=== PATIENT | male | born 1980 | race Two or more races ===

== ENCOUNTER 2018-04-02 22:12 | Inpatient (IN) | payer MEDICAID, OTHER ==
[~2018-04-02] VITALS: Ht 182.9 cm; Wt 74.4 kg
[2018-04-02] MEDS: LACTATED RINGER'S 1,000 ML IV SCH (01:00)
[~2018-04-02 22:12] MED LIST: SERAQUIL
[2018-04-03 00:28] LABS: Basophils # (auto) 0.1 uL; Basophils % (auto) 0.6 % (0.0-2.0); Eosinophils # (auto) 0.4 uL; Hemoglobin 16.5 g/dL (13.5-17.5); Lymphocytes # (auto) 4.6 uL; Mean Corpuscular Hgb Conc. 33.6 g/dL (32.0-36.0); Mean Corpuscular Volume 92.3 fL (80.0-100.0); Monocytes # (auto) 0.9 uL; Monocytes % (auto) 7.3 % (0.0-12.0); Neutrophils # (auto) 5.9 uL; Neutrophils % (auto) 50.1 % (37.0-80.0); Nucleated Red Blood Cells % 0.1 %; Platelet Count (auto) 235 10^3/uL (140-450); Red Blood Cells 5.31 10^6/uL (4.5-5.90); Red Cell Distribution Width 13.4 % (11.8-14.3); White Blood Cell 11.9 10^3/uL (4.4-10.8)
[2018-04-03 00:33] LABS: Urine WBC None Seen /hpf (0 - 3)
[2018-04-03 00:42] VITALS: BP 105/67
--- NOTE | 2018-04-03 00:42 | NUR ---
MS admit from ER MARCELLA MAR admitted to tele/MS after NO SBAR received. Patient oriented to DAMASO MEADOWS, RN primary RN, unit, room, bed, and unit policies regarding patient care and visiting hours. Family member at bedside. Patient weighed by bedscale and encouraged to call if they need something. All questions and concerns addressed, patient verbalized understanding. Note:
[2018-04-03 00:43] LABS: INR 0.94 (0.9-1.15); Partial Thromboplastin Time 32.5 sec (23.78-33.04); Prothrombin Time 10.1 sec (9.27-12.13)
[2018-04-03 00:46] LABS: Albumin 4.1 g/dL (3.4-5.0); BUN/Creatinine Ratio 9.6; Calcium 8.5 mg/dL (8.5-10.1); Potassium 4.1 mmol/L (3.5-5.1)
[2018-04-03 00:48] LABS: Bilirubin, Total 0.5 mg/dL (0.2-1.0); Total Protein 7.2 g/dL (6.4-8.2)
[2018-04-03 00:55] LABS: Urine Bacteria FEW /hpf (None Seen); Urine Blood Negative /uL (Negative); Urine Mucus FEW (None Seen); Urine Specific Gravity 1.002 (1.001-1.035)
--- NOTE | 2018-04-03 02:02 | NUR ---
PAGED HOSPITALIST Pt complaining of pain no pain meds available. Pain 8/10 on left side, Will await call back and continue to monitor pt.
--- NOTE | 2018-04-03 02:06 | NUR ---
HOSPITALIST CALL BACK TELEPHONE ORDER READ BACK Morphine 4 mg IV Once Zofran 4mg IV Once will carry out md order and will continue to monitor pt.
[2018-04-03] MEDS ORDERED: ONDANSETRON HCL 4 MG/2 ML VIAL IV ONE (02:15)
[2018-04-03] MEDS ORDERED: MORPHINE SULFATE 10 MG/ML INJ 1ML SDV IV ONE (02:15)
--- NOTE | 2018-04-03 02:30 | NUR ---
PT ROUNDS Informed pt that he does have one time order for pain med, pt stated that he would not like pain med at this moment, pain level is tolerable. will continue to monitor pt.
[2018-04-03] MEDS ORDERED: OLAN20TA13 PO (03:23)
[2018-04-03 05:00] VITALS: BP 106/62
[2018-04-03] MEDS: LACTATED RINGER'S 1,000 ML IV SCH ×2 (06:25→07:28)
--- NOTE | 2018-04-03 06:48 | NUR ---
CLOSING NOTE PT resting no s/sx's of distress or sob noted, family member at bedside.
[2018-04-03] MEDS ORDERED: INFLUENZA QUAD 2018-2019 0.5 ML SYRG IM ONE (07:00)
--- NOTE | 2018-04-03 07:30 | NUR ---
OPENING NOTE The patient is received alert and oriented times four with no SOB or s/s of distress at this time. The patient is resting in bed in the lowest position with call light within reach, will continue to monitor and POC.
--- NOTE | 2018-04-03 07:45 | NUR ---
PRE-OP CALLED Pre-Op is called for the patient's pending procedure. Pre-Op states that the patient is on the surgical list and that the patient needs to be in Pre-Op around 0830.
[2018-04-03 08:30] VITALS: BP 103/65
[2018-04-03] MEDS ORDERED: fentaNYL CITRATE 100 MCG/2 ML VL ONE (08:36)
[2018-04-03] MEDS ORDERED: MIDAZOLAM HCL 1MG/1ML-2 ML VIAL ONE (08:36)
[2018-04-03] MEDS ORDERED: SODIUM CHLORIDE LOCK 10 ML ONE (08:37)
[2018-04-03] MEDS ORDERED: ONDANSETRON HCL 4 MG/2 ML VIAL ONE (08:37)
[2018-04-03] MEDS ORDERED: PROPOFOL 10 MG/ML 20 ML IV ONE (08:37)
--- NOTE | 2018-04-03 08:40 | NUR ---
PATIENT TRANSPORTED The patient is transported to Pre-Op via bed with no s/s of distress noted during transfer.
[2018-04-03] MEDS ORDERED: ceFAZolin 1GM/50ML 50 ML IV ONE (09:31)
[2018-04-03] MEDS ORDERED: METOCLOPRAMIDE HCL 5MG/ml INJ 2ml VIAL IV ONE (09:45)
[2018-04-03] MEDS ORDERED: KETOROLAC TROMETH 30 MG/ML 1ML VIAL IV ONE (09:45)
[2018-04-03] MEDS ORDERED: HYDROmorphone HCL 2 MG/ML VL IV PRN (09:45)
[2018-04-03] MEDS ORDERED: LIDOCAINE 1% HCL (LOCAL ANESTH.) INJ 20ML MDV ONE (09:46)
[2018-04-03] MEDS ORDERED: QUEtiapine FUMARATE 25 MG TAB PO SCH (10:00)
[2018-04-03] MEDS ORDERED: BUPIVACAINE W/ EPINEPH 0.25% INJ 50ML MDV ONE (10:11)
[2018-04-03] MEDS ORDERED: ACETAMINOPHEN 325 MG TAB PO PRN (10:15)
[2018-04-03] MEDS ORDERED: HYDROcodone-ACET 10/325MG TAB PO PRN (10:15)
[2018-04-03] MEDS ORDERED: LACTATED RINGER'S 1,000 ML IV SCH (10:15)
[2018-04-03] MEDS ORDERED: ONDANSETRON HCL 4 MG/2 ML VIAL IV PRN (10:15)
[2018-04-03] MEDS ORDERED: DOXAPRAM HCL 20 MG/ML 20ML VIAL INJ IV ONE (10:28)
[2018-04-03] MEDS ORDERED: LIDOCAINE HCL 2% TOP JELLY 5ML TOP ONE (10:36)
[2018-04-03] MEDS ORDERED: PIPERACILLIN-TAZOB 3.375GM 100 ML IV SCH (12:00)
--- NOTE | 2018-04-03 12:15 | NUR ---
PATIENT RECEIVED FROM PACU The patient is received from PACU A/O times four with no SOB or s/s of distress at this time. The patient is resting comfortably in bed in the lowest position with call light within reach. The patient had a discharge order placed by Dr. Jarvis and Dr. Mendoza is called to assess the patient's discharge status, will continue to monitor and POC.
--- NOTE | 2018-04-03 12:30 | NUR ---
HOSPITALIST CALLS Dr. Mendoza calls and is updated on the patient's status. Dr. Mendoza states that if the patient is cleared by Dr. Jarvis then the patient can discharged today.
[2018-04-03 13:21] VITALS: BP 117/77
--- NOTE | 2018-04-03 14:30 | NUR ---
PRESCRIPTIONS Prescriptions called in to [facility], will continue to monitor and POC.
--- NOTE | 2018-04-03 16:30 | NUR ---
Discharge instructions given as ordered. Encourage to follow up with PMD as instructed. All questions and concerns addressed. Patient verbalized understanding. IV removed with catheter intact, pressure dressing applied. Patient taken to vehicle via wheelchair with all personal belongings, accompanied by staff and family member. No distress noted at time of departure.
[2018-04-04] MEDS ORDERED: OLANZapine 5 MG TAB PO SCH (10:00)
== END 2018-04-03 16:30 | disposition home or self-care (01) | DRG 228 ==
LOC: ER 22:49 → OVERFLOW 23:50 → EAST 04-03 00:42
PROVIDERS: ADMIT Surgery; ATTEND Internal Medicine
PROC: 0YQ60ZZ Repair Left Inguinal Region, Open Approach (ICD-10-PCS; principal; 2018-04-03 09:51)
DX: K40.30 Unilateral inguinal hernia, with obstruction, without gangrene, not specified as recurrent (principal); J18.9 Pneumonia, unspecified organism; F20.9 Schizophrenia, unspecified; J44.0 Chronic obstructive pulmonary disease with (acute) lower respiratory infection; F12.90 Cannabis use, unspecified, uncomplicated; F17.210 Nicotine dependence, cigarettes, uncomplicated; Z88.8 Allergy status to other drugs, medicaments and biological substances
CPT/HCPCS: 36415; 71045; 80053; 81001; 85025; 85610; 85730; 86850; 86900; 86901; 93005; A6257; G0378; J0690; J2001; J2250; J2405; J2704

== ENCOUNTER → 2020-05-11 | Outpatient (CLI) | payer MEDICAID ==
[~2020-05-11] MED LIST changes: +OLAN20TA PO; -SERAQUIL
[2020-05-11 09:00] LABS: Urine WBC None Seen /hpf (0 - 3)
[2020-05-11 09:18] LABS: Basophils # (auto) 0.1 10 ^3/uL (0-0.2); Basophils % (auto) 0.6 % (0.0-2.0); Eosinophils # (auto) 0.3 10 ^3/uL (0-0.8); Eosinophils % (auto) 3.5 % (0.0-7.0); Hematocrit 47.1 % (41.0-53.0); Lymphocytes # (auto) 3.1 10 ^3/uL (0.4-5.4); Lymphocytes % (auto) 32.1 % (10.0-50.0); Mean Corpuscular Hemoglobin 31.3 pg (28.0-32.0); Mean Corpuscular Hgb Conc. 33.9 g/dL (32.0-36.0); Mean Corpuscular Volume 92.4 fL (80.0-100.0); Monocytes # (auto) 0.6 10 ^3/uL (0-1.3); Monocytes % (auto) 6.6 % (0.0-12.0); Neutrophils # (auto) 5.5 10 ^3/uL (1.6-8.6); Neutrophils % (auto) 57.2 % (37.0-80.0); Nucleated Red Blood Cells % 0.2 %; Platelet Count (auto) 215 10^3/uL (140-450); Red Blood Cells 5.09 10^6/uL (4.5-5.90); Red Cell Distribution Width 13.7 % (11.8-14.3); White Blood Cell 9.6 10^3/uL (4.4-10.8)
[2020-05-11 09:57] LABS: Urine Bacteria NONE SEEN /hpf (None Seen); Urine Blood Negative /uL (Negative); Urine Specific Gravity 1.017 (1.001-1.035)
[2020-05-11 10:20] LABS: Potassium 4.1 mmol/L (3.5-5.1)
[2020-05-11 10:32] LABS: Albumin 3.6 g/dL (3.4-5.0); Bilirubin, Total 0.4 mg/dL (0.2-1.0); Calcium 8.3 mg/dL (8.5-10.1)
== END | disposition home or self-care (01) ==
LOC: LAB 08:53
PROVIDERS: ATTEND Obstetrics & Gynecology
DX: Z00.00 Encounter for general adult medical examination without abnormal findings (principal)
CPT/HCPCS: 36415; 80053; 80061; 81001; 83036; 85025; 87086

== ENCOUNTER → 2021-09-14 | Outpatient (CLI) | payer MEDICAID ==
[2021-09-14 09:14] LABS: Basophils # (auto) 0 10 ^3/uL (0-0.2); Basophils % (auto) 0.5 % (0.0-2.0); Eosinophils # (auto) 0.3 10 ^3/uL (0-0.8); Eosinophils % (auto) 3.3 % (0.0-7.0); Hematocrit 49.7 % (41.0-53.0); Hemoglobin 16.9 g/dL (13.5-17.5); Lymphocytes # (auto) 3.3 10 ^3/uL (0.4-5.4); Lymphocytes % (auto) 33.3 % (10.0-50.0); Mean Corpuscular Hemoglobin 30.8 pg (28.0-32.0); Mean Corpuscular Hgb Conc. 33.9 g/dL (32.0-36.0); Mean Corpuscular Volume 90.6 fL (80.0-100.0); Monocytes # (auto) 0.7 10 ^3/uL (0-1.3); Monocytes % (auto) 7.5 % (0.0-12.0); Neutrophils # (auto) 5.5 10 ^3/uL (1.6-8.6); Neutrophils % (auto) 55.4 % (37.0-80.0); Nucleated Red Blood Cells % 0.2 %; Red Blood Cells 5.49 10^6/uL (4.5-5.90); White Blood Cell 9.9 10^3/uL (4.4-10.8)
[2021-09-14 09:35] LABS: BUN/Creatinine Ratio 12.6; Calcium 8.9 mg/dL (8.5-10.1); Potassium 4.1 mmol/L (3.5-5.1)
[2021-09-14 09:40] LABS: Bilirubin, Total 0.5 mg/dL (0.2-1.0); Total Protein 7.4 g/dL (6.4-8.2)
== END | disposition home or self-care (01) ==
LOC: LAB 08:49
PROVIDERS: ATTEND Internal Medicine
DX: Z00.00 Encounter for general adult medical examination without abnormal findings (principal)
CPT/HCPCS: 36415; 80053; 80061; 83036; 84443; 85025; 87081

== ENCOUNTER → 2021-11-08 | Outpatient (CLI) | payer MEDICAID | END | disposition home or self-care (01) | LOC: LAB 15:33 | PROVIDERS: ATTEND Internal Medicine | DX: Z22.322 Carrier or suspected carrier of Methicillin resistant Staphylococcus aureus (principal) | CPT/HCPCS: 87081 ==

== ENCOUNTER 2024-03-29 14:05 | Inpatient (IN) | payer MEDICAID ==
[~2024-03-29] VITALS: Ht 167.6 cm; Wt 98.1 kg
--- NOTE | 2024-03-29 14:31 | ED.PDOC ---
History of Present Illness(SKN HPI Comments 43 y.o male presents to the ED for an evaluation of a wound check. Patient reports swelling to the left axillary region s/p shaving one week ago. Patient denies any bleeding, discharge, lacerations, fever or chills. Time Seen by MD: 14:23 Primary Care Provider: DENIES History of Present Illness: Nurses Notes, Medications, Allergies Allergies: Coded Allergies: Haloperidol (Verified Allergy, Unknown, 04/03/18) Home Meds Reported Medications Olanzapine (Zyprexa) 20 Mg Tab, 30 MG PO, TAB 04/03/18 Information Source: Patient Mode of Arrival: Ambulatory Severity: Moderate Timing: Weeks (1) Duration: Since onset Location: Trunk Mechanism: Spontaneous Onset Wound Type: Other History of: None Associated Signs and Symptoms: Swelling Past Medical History PAST MEDICAL HISTORY: Anxiety, Schizophrenia Surgical History: Denies all surgeries Family History Family History: Unobtainable Social History Smoker: Cigarettes Alcohol: Occasionally Drugs: Marijuana Lives In: Home Constitutional: denies: chills, diaphoresis, fatigue, fever, malaise, sweats, weakness, others EENTM: denies: blurred vision, double vision, ear bleeding, ear discharge, ear drainage, ear pain, ear ringing, eye pain, eye redness, hearing loss, mouth pain, mouth swelling, nasal discharge, nose bleeding, nose congestion, nose pain, photophobia, tearing, throat pain, throat swelling, voice changes, others Respiratory: denies: cough, hemoptysis, orthopnea, SOB at rest, shortness of breath, SOB with excertion, stridor, wheezing, others Cardiovascular: denies: chest pain, dizzy spells, diaphoresis, Dyspnea on exertion, edema, irregular heart beat, left arm pain, lightheadedness, palpitations, PND, syncope, others Gastrointestinal: denies: abdomen distended, abdominal pain, blood streaked bowels, constipated, diarrhea, dysphagia, difficulty swallowing, hematemesis, melena, nausea, poor appetite, poor fluid intake, rectal bleeding, rectal pain, vomiting, others Genitourinary: denies: burning, dysuria, flank pain, frequency, hematuria, incontinence, penile discharge, penile sore, pain, testicle pain, testicle swelling, urgency, others Neurological: denies: dizziness, fainting, headache, left sided numbness, left sided weakness, numbness, paresthesia, pre-existing deficit, right sided numbness, right sided weakness, seizure, speech problems, tingling, tremors, weakness, others Musculoskeletal: denies: back pain, gout, joint pain, joint swelling, muscle pain, muscle stiffness, neck pain, others Integumetry: reports: wounds (left axillary ); denies: bruises, change in color, change in hair/nails, dryness, laceration, lesions, lumps, rash, others Allergic/Immunocompromised: denies: Difficulty Healing, Frequent Infections, Hives, Itching, others Hematologic/Lymphatic: denies: anemia, blood clots, easy bleeding, easy bruising, swollen glands, others Endocrine: denies: excessive hunger, excessive sweating, excessive thirst, excessive urination, flushing, intolerance to cold, intolerance to heat, unexplained weight gain, unexplained weight loss, others Psychiatric: denies: anxiety, bipolar disorder, depression, hopeless, panic disorder, schizophrenia, sleepless, suicidal, others Physical Exam General Appearance: Moderate Distress HEENT: Normal ENT Inspection, Pharynx Normal, TMs Normal Neck: Full Range of Motion, Non-Tender, Normal, Normal Inspection Respiratory: Chest Non-Tender, Lungs Clear, No Accessory Muscle Use, No Respiratory Distress, Normal Breath Sounds Cardiovascular: No Edema, No JVD, No Murmur, No Gallop, Normal Peripheral Pulses, Regular Rate/Rhythm Breast Exam: Deferred Gastrointestinal: No Organomegaly, Non Tender, No Pulsatile Mass, Normal Bowel Sounds, Soft Genitalia: Deferred Pelvic: Deferred Rectal: Deferred Extremities: No calf tenderness, Normal capillary refill, Normal inspection, Normal range of motion, Non-tender, No pedal edema Musculoskeletal : Apperance: Normal Neurologic: Alert, maid supervisor II-XII nml as Tested, No Motor Deficits, Normal Affect, Normal Mood, No Sensory Deficits Cerebellar Function: Normal Reflexes: Normal Skin: Wounds (Left axilla) Peripheral Pulses: 3+ Radial (R), 3+ Radial (L) Lymphatic: No Adenopathy Was a procedure done? Was a procedure done?: No Differential Diagnosis (INTG) Differential Diagnosis: Cellulitis Differential Diagnosis: Contact Dermatitis X-Ray, Labs, Meds, VS Vital Signs Date Time Temp Pulse Resp B/P (MAP) Pulse Ox O2 Delivery O2 Flow Rate FiO2 1/4/25 14:34 99.4 98 16 127/70 (89) 98 Lab Test 03/29/24 14:32 Range/Units White Blood Count 17.6 H 4.4-10.8 10^3/uL Red Blood Count 5.22 4.5-5.90 10^6/uL Hemoglobin 15.8 13.5-17.5 g/dL Hematocrit 46.5 41.0-53.0 % Mean Corpuscular Volume 89.0 80.0-100.0 fL Mean Corpuscular Hemoglobin 30.2 28.0-32.0 pg Mean Corpuscular Hemoglobin Concent 33.9 32.0-36.0 g/dL Red Cell Distribution Width 14.3 11.8-14.3 % Platelet Count 231 140-450 10^3/uL Mean Platelet Volume 8.4 6.9-10.8 fL Neutrophils (%) (Auto) 75.7 37.0-80.0 % Lymphocytes (%) (Auto) 17.5 10.0-50.0 % Monocytes (%) (Auto) 5.7 0.0-12.0 % Eosinophils (%) (Auto) 0.7 0.0-7.0 % Basophils (%) (Auto) 0.4 0.0-2.0 % Neutrophils # (Auto) 13.3 H 1.6-8.6 10 ^3/uL Lymphocytes # (Auto) 3.1 0.4-5.4 10 ^3/uL Monocytes # (Auto) 1.0 0-1.3 10 ^3/uL Eosinophils # (Auto) 0.1 0-0.8 10 ^3/uL Basophils # (Auto) 0.1 0-0.2 10 ^3/uL Nucleated Red Blood Cells 0.0 % Prothrombin Time 10.4 9.3-11.8 sec Prothrombin Time INR 0.98 0.9-1.15 Activated Partial Thromboplast Time 31.4 24.5-34.5 SEC Sodium Level 138 136-145 mmol/L Potassium Level 3.6 3.5-5.1 mmol/L Chloride Level 104 98-107 mmol/L Carbon Dioxide Level 25 20-31 mmol/L Anion Gap 9 5-15 Blood Urea Nitrogen 10 9-23 mg/dL Creatinine 1.01 0.700-1.30 mg/dL Glomerular Filtration Rate Calc 94 >90 mL/min BUN/Creatinine Ratio 9.9 L 10.0-20.0 Serum Glucose 154 H 74-106 mg/dL Calcium Level 10.1 8.7-10.4 mg/dL Patient alert. Has a abscess left axilla. Vitals stable. Answering all questions. Ambulating. Has been having this growth for a week. I and D. Surgical consultation. Surgery was going to perform I&D. NPO after midnight. Was given Zosyn. Blood culture. Explained to the patient. Continue cardiac monitoring. Time of 1ST Reevaluation: 14:30 Reevaluation 1ST: Unchanged Patient Education/Counseling: Diagnosis, Treatment, Prognosis Family Education/Counseling: No Family Present Additional Information I reviewed the following notes from patient's past medical encounters: The following tests were ordered, and results were reviewed by me: BMP, CMP, PTPTT, UA, NPO Additional Information was gathered from interviewing the following independent historians: Family I reviewed and agreed with the following test results read by other providers: None I discussed treatment and results with medical personnel and: Consultants and Family Departure 1 Departure Time of Disposition: 15:29 Impression: Primary Impression: Abscess Additional Impressions: Anxiety Schizophrenia Qualified Codes: F20.9 - Schizophrenia, unspecified Disposition: ADMITTED INPATIENT Admit to: Med Surg Condition: Guarded Critical Care Note Critical Care Time?: No Stability Stability form required: No I personally scribed for DANDRE SCHMITT MD ([email or web address]) on 03/29/24 at 14:31. Electronically submitted by Lorna Potts ([facility]). DANDRE SCHMITT MD Mar 29, 2024 14:31
[2024-03-29 15:06] LABS: Basophils # (auto) 0.1 10 ^3/uL (0-0.2); Basophils % (auto) 0.4 % (0.0-2.0); Calcium 10.1 mg/dL (8.7-10.4); Chloride 104 mmol/L (98-107); Eosinophils # (auto) 0.1 10 ^3/uL (0-0.8); Eosinophils % (auto) 0.7 % (0.0-7.0); Hematocrit 46.5 % (41.0-53.0); Hemoglobin 15.8 g/dL (13.5-17.5); INR 0.98 (0.9-1.15); Lymphocytes # (auto) 3.1 10 ^3/uL (0.4-5.4); Lymphocytes % (auto) 17.5 % (10.0-50.0); Mean Corpuscular Hemoglobin 30.2 pg (28.0-32.0); Mean Corpuscular Hgb Conc. 33.9 g/dL (32.0-36.0); Monocytes % (auto) 5.7 % (0.0-12.0); Neutrophils # (auto) 13.3 10 ^3/uL (1.6-8.6); Neutrophils % (auto) 75.7 % (37.0-80.0); Partial Thromboplastin Time 31.4 SEC (24.5-34.5); Platelet Count (auto) 231 10^3/uL (140-450); Potassium 3.6 mmol/L (3.5-5.1); Prothrombin Time 10.4 sec (9.3-11.8); Red Blood Cells 5.22 10^6/uL (4.5-5.90); Red Cell Distribution Width 14.3 % (11.8-14.3); Sodium 138 mmol/L (136-145); White Blood Cell 17.6 10^3/uL (4.4-10.8)
[2024-03-29 15:07] LABS: Anion Gap 9 (5-15); Carbon Dioxide 25 mmol/L (20-31)
[2024-03-29 15:12] LABS: BUN/Creatinine Ratio 9.9 (10.0-20.0); Blood Urea Nitrogen 10 mg/dL (9-23)
[2024-03-29 15:29] LABS: Glucose 154 mg/dL (74-106)
--- NOTE | 2024-03-29 17:26 | DVHHP2 ---
History of Present Illness Reason for Visit: Left axillary abscess History of Present Illness Maurice Durand is a 43-year-old male with past medical history of anxiety and schizophrenia who presents to the ED for left axillary abscess. Patient reports that he was shaving is under arm 1 week ago and shortly afterwards developed this. Patient denies any chest pain, shortness of breath, abdominal pain, nausea, vomiting, diarrhea, lightheadedness, numbness, tingling, and dizziness. Psych: Anxiety, Schizophrenia Family History: Other (Dad unknown and mom's schizo) Smoke: No ALCOHOL: none Drugs: Marijuana Lives: Alone Domestic Violence: Neg Review of Systems Constitutional: No: Fever, Chills, Sweats, Weakness, Malaise, Other Eyes: No: Pain, Vision change, Conjunctivae inflammation, Eyelid inflammation, Other, Redness ENT: No: Ear pain, Ear discharge, Nose pain, Nose discharge, Nose congestion, Mouth pain, Mouth swelling, Throat pain, Throat swelling, Other Respiratory: No: Cough, Dry, Shortness of breath, SOB with excertion, Wheezing, Hemoptysis, Pleuritic Pain, Sputum, Wheezing, Other Cardiovascular: No: Chest Pain, Palpitations, Orthopnea, Paroxysmal Noc. Dyspnea, Edema, Lt Headedness, Other Gastrointestinal: No: Nausea, Vomiting, Abdominal Pain, Diarrhea, Constipation, Melena, Hematochezia, Other Genitourinary: No Dysuria, No Frequency, No Incontinence, No Hematuria, No Retention, No Other Musculoskeletal: No: other, neck pain, shoulder pain, arm pain, back pain, hand pain, leg pain, foot pain Skin: Other (Abscess erythema left axilla); No: Rash, Lesions, Jaundice, Bruising Neurological: No: Weakness, Numbness, Incoordination, Change in speech, Confusion, Seizures, Other Allergies: Coded Allergies: Haloperidol (Verified Allergy, Unknown, 04/03/18) Medications Current Medications Medications Dose Ordered Sig/Migdalia Route Start Time Stop Time Status Last Admin Dose Admin Piperacillin Sod/ Tazobactam Sod 100 ml @ 25 mls/hr Q8HR IV 03/29/24 22:00 UNV Acetaminophen/ Hydrocodone Bitart 1 tab Q4HP PRN PO 03/29/24 17:30 UNV Ondansetron HCl 4 mg Q4HP PRN IV 03/29/24 17:30 UNV Acetaminophen 650 mg Q6HP PRN PO 03/29/24 17:30 UNV Morphine Sulfate 2 mg Q4HPRN PRN IV 03/29/24 17:30 UNV Exam Vital Signs Vital Signs Date Time Temp Pulse Resp B/P (MAP) Pulse Ox O2 Delivery O2 Flow Rate FiO2 03/29/24 14:34 99.4 98 16 127/70 (89) 98 General Appearance: Alert, Oriented X3, Cooperative, No acute distress HEENT: Atraumatic, PERRLA, EOMI, Mucous membr. moist/pink Respiratory: Clear to auscultation, Normal air movement Cardiovascular: Regular rate, Normal S1, Normal S2, No murmurs Abdominal: Normal bowel sounds, Soft, No tenderness, No hepatospenomegaly, No masses Extremities: No clubbing, No cyanosis, No edema, Normal pulses, Other (Erythema and abscess on left axilla) Neuro: Normal gait, Normal speech, Strength at 5/5 X4 ext, Normal tone, Sensation intact Psych/Mental Status: Mental status NL, Mood NL Labs/Xrays Labs Test 03/29/24 14:32 Range/Units White Blood Count 17.6 H 4.4-10.8 10^3/uL Red Blood Count 5.22 4.5-5.90 10^6/uL Hemoglobin 15.8 13.5-17.5 g/dL Hematocrit 46.5 41.0-53.0 % Mean Corpuscular Volume 89.0 80.0-100.0 fL Mean Corpuscular Hemoglobin 30.2 28.0-32.0 pg Mean Corpuscular Hemoglobin Concent 33.9 32.0-36.0 g/dL Red Cell Distribution Width 14.3 11.8-14.3 % Platelet Count 231 140-450 10^3/uL Mean Platelet Volume 8.4 6.9-10.8 fL Neutrophils (%) (Auto) 75.7 37.0-80.0 % Lymphocytes (%) (Auto) 17.5 10.0-50.0 % Monocytes (%) (Auto) 5.7 0.0-12.0 % Eosinophils (%) (Auto) 0.7 0.0-7.0 % Basophils (%) (Auto) 0.4 0.0-2.0 % Neutrophils # (Auto) 13.3 H 1.6-8.6 10 ^3/uL Lymphocytes # (Auto) 3.1 0.4-5.4 10 ^3/uL Monocytes # (Auto) 1.0 0-1.3 10 ^3/uL Eosinophils # (Auto) 0.1 0-0.8 10 ^3/uL Basophils # (Auto) 0.1 0-0.2 10 ^3/uL Nucleated Red Blood Cells 0.0 % Prothrombin Time 10.4 9.3-11.8 sec Prothrombin Time INR 0.98 0.9-1.15 Activated Partial Thromboplast Time 31.4 24.5-34.5 SEC Sodium Level 138 136-145 mmol/L Potassium Level 3.6 3.5-5.1 mmol/L Chloride Level 104 98-107 mmol/L Carbon Dioxide Level 25 20-31 mmol/L Anion Gap 9 5-15 Blood Urea Nitrogen 10 9-23 mg/dL Creatinine 1.01 0.700-1.30 mg/dL Glomerular Filtration Rate Calc 94 >90 mL/min BUN/Creatinine Ratio 9.9 L 10.0-20.0 Serum Glucose 154 H 74-106 mg/dL Calcium Level 10.1 8.7-10.4 mg/dL Assessment/Plan Assessment/Plan Assessment/Plan: Left axillary abscess Leukocytosis likely due to abscess IV antibiotics Fluids Blood cultures UA PT/PTT Labs A.m. labs Anxiety Schizophrenia Continue home medications Obesity Educated patient on lifestyle modifications, diet, and exercise Substance abuse Counseled patient on cessation of substance abuse FEN/PPX Diet NPO after midnight IVf DVT ppx not indicated patient is ambulating PUD ppx not indicated patient has a history of GERD or GI bleed Admit to med surg Home medications reconciled Discussed plan of care with patient and nurse Plan discussed with: Patient My Orders Orders - LUIZ BERRY Procedure Category Date Status Time Zosyn Extended PHA 03/29/24 Transmitted Infusion 22:00 Admit ADMIT 03/29/24 Transmitted 17:17 Allergies PRINCESS 03/29/24 Transmitted 17:17 Code Status CODE 03/29/24 Transmitted 17:17 Hydrocodone-Acet PHA 03/29/24 Transmitted 5/325mg Tab ([place] 17:30 Ondansetron Hcl PHA 03/29/24 Transmitted (Zofran) 17:30 Complete Blood Count LAB 03/30/24 Verified 04:00 Comprehensive LAB 03/30/24 Verified Metabolic Panel 04:00 Cardiac DIET 03/29/24 Transmitted Diet-2gna,Lofat,Lochol Dinner Acetaminophen Tablet PHA 03/29/24 Transmitted (Tylenol Tablet) 17:30 Morphine Sulfate PHA 03/29/24 Transmitted Injection 17:30 Date of Service: Mar 29, 2024 Billing Provider: LUIZ BERRY Common Visit Codes: 49707-[id number] INP/OBS CARE (HIGH) LUIZ BERRY Mar 29, 2024 17:26
[2024-03-29] MEDS ORDERED: HYDROcodone-ACET 5/325MG TAB PO PRN (17:30)
[2024-03-29] MEDS ORDERED: ONDANSETRON HCL 4 MG/2 ML VIAL IV PRN (17:30)
[2024-03-29] MEDS ORDERED: MORPHINE SULFATE INJ 2 MG/ml SYRG IV PRN (17:30)
[2024-03-29] MEDS ORDERED: ACETAMINOPHEN 325 MG TAB PO PRN (17:30)
[2024-03-29] MEDS: SODIUM CHLORIDE 0.9% 1,000 ML IV ONE (18:28)
[2024-03-29] MEDS: PIPERACILLIN-TAZOB 3.375GM 100 ML IV ONE (18:28)
[2024-03-29 18:35] VITALS: PULSE 81; RESP 16; O2SAT 98
[2024-03-29 18:55] VITALS: PULSE 94; RESP 18; O2SAT 98
[2024-03-29 21:00] VITALS: BP 119/54; PULSE 75; RESP 18; TEMP 98.1; O2SAT 96
[2024-03-29] MEDS: PIPERACILLIN-TAZOB 3.375GM 100 ML IV SCH (22:24)
[2024-03-30] VITALS (9 sets, daily range): BP systolic 117–127; BP diastolic 54–77; PULSE 75–93; RESP 11–19; TEMP 97.1–98.1; O2SAT 93–99
[2024-03-30] MEDS ORDERED: DIVA-91 PO (01:42)
[2024-03-30] MEDS ORDERED: FINA5TAB4 PO (01:42)
[2024-03-30] MEDS ORDERED: OLAN10TA PO (01:42)
[2024-03-30] MEDS: SODIUM CHLORIDE 0.9% 1,000 ML IV SCH (02:15)
[2024-03-30 03:07] LABS: Urine Bacteria None Seen /hpf (None Seen)
[2024-03-30 04:04] LABS: Urine Blood Negative /uL (Negative); Urine Clarity Clear (Clear); Urine Color Yellow (Yellow); Urine Protein, UAD TRACE (Negative); Urine Specific Gravity 1.031 (1.001-1.035); Urine Squamous Epithelial Cell None Seen /hpf (<5); Urine Urobilinogen Normal (Negative); Urine WBC 1 /hpf (0 - 3)
[2024-03-30] MEDS ORDERED: MIDAZOLAM HCL 2MG/2ML 2ml VIAL (1mg/ml) ONE (08:47)
[2024-03-30] MEDS ORDERED: ePHEDrine SULFATE 50 MG/ML AMP IV PRN (09:00)
[2024-03-30] MEDS ORDERED: hydrALAZINE HCL 20 MG/ML VL IV PRN (09:00)
[2024-03-30] MEDS ORDERED: HYDROmorphone HCL 2 MG/ML VL/or syr IV PRN (09:00)
[2024-03-30] MEDS ORDERED: MORPHINE SULFATE 4 MG/ML SYR/VIAL IV PRN (09:00)
[2024-03-30] MEDS: ONDANSETRON HCL 4 MG/2 ML VIAL IV ONE (09:00)
[2024-03-30] MEDS: ceFAZolin 2 GM/D5W100ml 100 ML IV ONE (09:19)
[2024-03-30] MEDS ORDERED: HYDROmorphone HCL 2 MG/ML VL/or syr ONE (09:32)
[2024-03-30] MEDS ORDERED: diphenhdrAMINE HCL 50 MG/1 ML VL ONE (09:34)
[2024-03-30] MEDS ORDERED: KETOROLAC TROMETH 30 MG/ML 1ML VIAL ONE (09:34)
[2024-03-30] MEDS ORDERED: ONDANSETRON HCL 4 MG/2 ML VIAL ONE (09:34)
[2024-03-30] MEDS ORDERED: ceFAZolin 1GM VL ONE (09:50)
[2024-03-30] MEDS: D5W/SOD CHL 0.45%/KCL 20MEQ 1,000 ML IV SCH (10:15)
--- NOTE | 2024-03-30 11:00 | DVHOP ---
DATE OF SURGERY: 03/30/2024 PREOPERATIVE DIAGNOSIS: Left axillary hidradenitis suppurativa, left axillary abscess. POSTOPERATIVE DIAGNOSIS: Left axillary hidradenitis suppurativa, left axillary abscess. SURGEON: Bakari Jarvis MD ANESTHESIOLOGIST: Dr. Lim. PROCEDURE: Left axillary abscess incision and drainage. ANESTHESIA: General endotracheal. DESCRIPTION OF PROCEDURE: Under general endotracheal anesthesia with the patient's skin prepped and draped, the abscess was first aspirated with 18 gauge needle and 10 mL syringe of approximately 10 mL of purulent material, which was submitted for cultures and sensitivities. Subsequently, an incision was made over the fluctuant portion of the abscess and the abscess was evacuated of purulent material. Another abscess was located inferior to this one and was also lanced in the same way. The both abscess cavities were then profusely irrigated with antibiotic containing pulse lavage and following achievement of complete hemostasis, the wounds were packed with iodoform gauze. The patient remained stable throughout the procedure, left the operating room following an accurate needle and sponge count. Bakari Jarvis MD PF/RONALD/ANA MARÍA TID: [id number] RECEIPT: [id number]
--- NOTE | 2024-03-30 13:16 | DVHPN2 ---
Subjective Left axilla surgical pain controlled with painkillers; the patient feels better after the surgery Reviewed: Care Plan, H&P, Labs, Medications, Previous Orders, Radiology, Other (Consultation) Changes from previous H/P or p: Changes Objective Vitals Vital Signs Date Time Temp Pulse Resp B/P (MAP) Pulse Ox O2 Delivery O2 Flow Rate FiO2 03/30/24 10:50 81 18 124/84 (97) 96 03/30/24 10:05 Mask 8.0 03/30/24 10:05 97.9 97.9 03/30/24 10:05 98 Intake/Output Intake and Output 03/30/24 07:00 Intake Total 100 ml Output Total 3 ml Balance 97 ml Intake Oral 0 ml IV Total 100 ml Output Urine Total 3 ml General Appearance: Alert, Oriented X3, Cooperative, No acute distress HEENT: Atraumatic Lungs: Clear to auscultation, Normal air movement Chest/Breasts: Other (Left axilla with clean dressing) Cardiovascular: Regular rate, Normal S1, Normal S2 Abdomen: Normal bowel sounds, Soft, No tenderness, No hepatospenomegaly Extremities: No edema Neuro: Normal speech, Cranial nerves 3-12 NL Psych/Mental Status: Mental status NL, Mood NL Medications Current Medications Medications Dose Ordered Sig/Migdalia Route Start Time Stop Time Status Last Admin Dose Admin Piperacillin Sod/ Tazobactam Sod 100 ml @ 25 mls/hr Q6HR IV 03/29/24 22:00 03/30/24 06:14 25 MLS/HR Acetaminophen/ Hydrocodone Bitart 1 tab Q4HP PRN PO 03/29/24 17:30 Ondansetron HCl 4 mg Q4HP PRN IV 03/29/24 17:30 Acetaminophen 650 mg Q6HP PRN PO 03/29/24 17:30 Morphine Sulfate 2 mg Q4HPRN PRN IV 03/29/24 17:30 Potassium Chloride/Dextrose/ Sod Cl 1,000 ml @ 75 mls/hr [id number] IV 03/30/24 10:15 Docusate Sodium 100 mg BID PO 03/30/24 22:00 Laboratory Results Laboratory Tests 03/29/24 14:32 Chemistry Test 03/29/24 14:32 Calcium Level 10.1 mg/dL (8.7-10.4) Coagulation Test 03/29/24 14:32 Prothrombin Time 10.4 sec (9.3-11.8) Prothrombin Time INR 0.98 (0.9-1.15) Activated Partial Thromboplast Time 31.4 SEC (24.5-34.5) Urinalysis Test 03/30/24 02:25 Urine Color Yellow (Yellow) Urine Clarity Clear (Clear) Urine pH 6.0 (5.0-9.0) Urine Specific [place] 1.031 (1.001-1.035) Urine Protein Trace (Negative) H Urine Ketones 1+ (Negative) H Urine Blood Negative /uL (Negative) Urine Nitrite Negative (Negative) Urine Bilirubin Negative (Negative) Urine Urobilinogen Normal mg/dL (Negative) Urine Leukocyte Esterase Negative /uL (Negative) Urine RBC 8 /hpf (0 - 3) Urine WBC 1 /hpf (0 - 3) Urine Squamous Epithelial Cells None seen /hpf (<5) Urine Bacteria None seen /hpf (None Seen) Urine Glucose Normal mg/dL (Normal) Labs and/or images reviewed: Labs reviewed by me, Image(s) reviewed by me Assessment/Plan Assessment/Plan A 43-year-old male patient; with multiple comorbidities; who was admitted because of left axilla abscess for surgery. #Sepsis will leukocytosis due to left axillary abscess; details and management as below; continue monitoring #Left axillary hidradenitis suppurativa, and left axillary abscess; status post left axillary abscess incision and drainage this morning by General Surgery; continue pain management as indicated; continue IV antibiotics; will follow the results of wound cultures; continue monitoring #Metabolic syndrome with morbid obesity, diabetes mellitus type 2, and mixed dyslipidemia; counseled the patient on the importance of adopting healthy lifestyle with diet and exercise in order to lose weight; continue monitoring #Diabetes mellitus type 2 with mixed dyslipidemia; started the patient on insulin sliding scale with hypoglycemia protocol; patient declined statin; continue monitoring #Morbid obesity; details as above; continue monitoring #Polysubstance use disorder including tobacco and marijuana; counseled on cessation for 22 minutes including 16 minutes for tobacco use cessation; continue monitoring Goals of care discussed for 20 minutes; full code. This medical document was created using an electronic medical record system with computerized dictation system. Although this document has been carefully reviewed, there might still be some phonetic and typographical errors. These areas are purely typographical due to imperfections of the software programs, and do not reflect any compromise in the patient's medical care. Plan discussed with: Patient, Other (Nurse) Date of Service: Mar 30, 2024 Billing Provider: BIRGIT ALONSO MD Common Visit Codes: [id number] INP/OBS CARE(HIGH) Secondary Visit Codes: [id number] CHNG SMOKING >10MIN (counseled on cessation for 22 minutes including 16 minutes for tobacco use cessation), 38415-IPKIDTOE CARE PLAN 30 MINUTES (20 minutes) BIRGIT ALONSO MD Mar 30, 2024 13:15
[2024-03-30 13:57] LABS: Basophils # (auto) 0.1 10 ^3/uL (0-0.2); Basophils % (auto) 0.6 % (0.0-2.0); Eosinophils # (auto) 0.4 10 ^3/uL (0-0.8); Eosinophils % (auto) 2.3 % (0.0-7.0); Hemoglobin 14.4 g/dL (13.5-17.5); Lymphocytes # (auto) 3.9 10 ^3/uL (0.4-5.4); Lymphocytes % (auto) 23.2 % (10.0-50.0); Mean Corpuscular Hemoglobin 30.6 pg (28.0-32.0); Mean Corpuscular Hgb Conc. 34.3 g/dL (32.0-36.0); Monocytes # (auto) 1.1 10 ^3/uL (0-1.3); Monocytes % (auto) 6.8 % (0.0-12.0); Neutrophils # (auto) 11.1 10 ^3/uL (1.6-8.6); Neutrophils % (auto) 67.1 % (37.0-80.0); Platelet Count (auto) 214 10^3/uL (140-450); Red Blood Cells 4.72 10^6/uL (4.5-5.90); Red Cell Distribution Width 14.2 % (11.8-14.3); White Blood Cell 16.6 10^3/uL (4.4-10.8)
[2024-03-30 14:12] LABS: Alanine Aminotransferase 19 U/L (7-40); Albumin 4.2 g/dL (3.2-4.8); Alkaline Phosphatase 63 U/L (46-116); Anion Gap 5 (5-15); Aspartate Aminotransferase 16 U/L (13-40); BUN/Creatinine Ratio 10.4 (10.0-20.0); Bilirubin, Total 0.5 mg/dL (0.2-1.0); Blood Urea Nitrogen 11 mg/dL (9-23); Calcium 9.6 mg/dL (8.7-10.4); Carbon Dioxide 27 mmol/L (20-31); Chloride 104 mmol/L (98-107); Sodium 136 mmol/L (136-145); Total Protein 6.9 g/dL (5.7-8.2)
[2024-03-30] MEDS ORDERED: DEXTROSE (50%) 50ML SYRG IV PRN (14:15)
[2024-03-30 14:16] LABS: Glucose 113 mg/dL (74-106)
[2024-03-30] MEDS: ACCU-CHEK COMFORT CURVE STRIP VI SCH (17:00)
[2024-03-30] MEDS: InsuLIN REG 1unit/0.01ml Soln (100units/ml) SC SCH (19:04)
[2024-03-30] MEDS: DOCUSATE SOD 100 MG CAP PO SCH (21:11)
[2024-03-31 01:00] VITALS: BP 119/64; PULSE 82; RESP 18; TEMP 98.1; O2SAT 94
[2024-03-31 05:00] VITALS: BP 106/53; PULSE 79; RESP 18; TEMP 97.6; O2SAT 94
[2024-03-31 07:44] LABS: Alanine Aminotransferase 17 U/L (7-40); Alkaline Phosphatase 61 U/L (46-116); Anion Gap 8 (5-15); Aspartate Aminotransferase 14 U/L (13-40); BUN/Creatinine Ratio 7.3 (10.0-20.0); Bilirubin, Total 0.8 mg/dL (0.2-1.0); Calcium 9.5 mg/dL (8.7-10.4); Carbon Dioxide 24 mmol/L (20-31); Potassium 4.2 mmol/L (3.5-5.1); Sodium 140 mmol/L (136-145); Total Protein 6.5 g/dL (5.7-8.2)
[2024-03-31 07:48] LABS: Glucose 104 mg/dL (74-106)
[2024-03-31 07:51] LABS: Blood Urea Nitrogen 7 mg/dL (9-23); Chloride 108 mmol/L (98-107)
[2024-03-31 08:34] LABS: Basophils # (auto) 0 10 ^3/uL (0-0.2); Basophils % (auto) 0.3 % (0.0-2.0); Eosinophils # (auto) 0.5 10 ^3/uL (0-0.8); Eosinophils % (auto) 3.8 % (0.0-7.0); Hemoglobin 14.7 g/dL (13.5-17.5); Lymphocytes # (auto) 3.2 10 ^3/uL (0.4-5.4); Lymphocytes % (auto) 26.5 % (10.0-50.0); Mean Corpuscular Hgb Conc. 33.4 g/dL (32.0-36.0); Mean Corpuscular Volume 89.8 fL (80.0-100.0); Monocytes % (auto) 8.5 % (0.0-12.0); Neutrophils # (auto) 7.4 10 ^3/uL (1.6-8.6); Neutrophils % (auto) 60.9 % (37.0-80.0); Nucleated Red Blood Cells % 0.1 %; Platelet Count (auto) 232 10^3/uL (140-450); Red Cell Distribution Width 13.9 % (11.8-14.3); White Blood Cell 12.1 10^3/uL (4.4-10.8)
[2024-03-31 09:00] VITALS: BP 110/65; PULSE 87; RESP 16; TEMP 97.7; O2SAT 90
[2024-03-31] MEDS: OLANZapine 5 MG TAB PO ONE (10:15)
--- NOTE | 2024-03-31 10:25 | DVHPN2 ---
Progress Note Date Seen: Mar 31, 2024 Medical Necessity Reason Pt with a Central, PICC or Fol: No Subjective Patient reports: No new complaints Review of Systems: HEENT:Normal, CVS:Normal, RESPIRATORY:Normal, GI:Normal, :Normal, MSK:Normal, NEURO:Normal Objective vital signs Vital Sign Date Time Temp Pulse Resp B/P (MAP) Pulse Ox O2 Delivery O2 Flow Rate FiO2 03/31/24 09:00 97.7 87 16 110/65 (80) 90 97.7 03/30/24 20:00 Room Air* 0 21 Total Intake and Output 03/30/24 03/30/24 03/31/24 15:00 23:00 07:00 Intake Total 600 ml 350 ml Output Total 3 ml 300 ml Balance 597 ml 50 ml medications Current Medications Medications Dose Ordered Sig/Migdalia Route Start Time Stop Time Status Last Admin Dose Admin Piperacillin Sod/ Tazobactam Sod 100 ml @ 25 mls/hr Q6HR IV 03/29/24 22:00 03/31/24 06:20 25 MLS/HR Acetaminophen/ Hydrocodone Bitart 1 tab Q4HP PRN PO 03/29/24 17:30 Ondansetron HCl 4 mg Q4HP PRN IV 03/29/24 17:30 Acetaminophen 650 mg Q6HP PRN PO 03/29/24 17:30 Morphine Sulfate 2 mg Q4HPRN PRN IV 03/29/24 17:30 Potassium Chloride/Dextrose/ Sod Cl 1,000 ml @ 75 mls/hr [id number] IV 03/30/24 10:15 03/31/24 06:22 75 MLS/HR Docusate Sodium 100 mg BID PO 03/30/24 22:00 03/30/24 21:11 100 MG Diagnostic Test (Pha) 1 strip ACHS 03/30/24 17:00 03/31/24 06:24 1 STRIP Insulin Human Regular ACHS SC 03/30/24 17:00 03/30/24 19:04 2 UNITS Dextrose 50 ml UD PRN IV 03/30/24 14:15 Examination: GENERAL:Normal, HEENT:Normal, NECK:Normal, LUNGS:Normal, CVS:Normal, ABDOMEN:Normal, MSK:Normal, MSK:Abnormal (LEFT AXILLARY DRESSING), SKIN:Normal, NEURO:Normal, :Normal laboratory and microbiology Laboratory Tests 03/31/24 06:55 Test 03/31/24 06:55 Range/Units Serum Glucose 104 74-106 mg/dL Microbiology Date/Time Source Procedure Growth Status 03/29/24 14:32 Blood Blood Culture - Preliminary NO GROWTH AFTER 24 HOURS OF INCUBATION. Resulted Problem List/Assessment/Plan Problem List/Assessment/Plan #1 left axillary abscess s/p surgery with sepsis: iv doxy #2 morbid obesity #3 schizophrenia: cont home meds advance care planning- full code- time spent 19 mins Plan discussed with: Patient Date of Service: Mar 31, 2024 Billing Provider: MARY SOLIS MD Common Visit Codes: [id number] INP/OBS CARE(HIGH) Secondary Visit Codes: [id number] CARE PLAN 30 MINUTES MARY SOLIS MD Mar 31, 2024 10:25
--- NOTE | 2024-03-31 10:57 | DVHPN2 ---
Progress Note Date Seen: Mar 31, 2024 Medical Necessity Reason Pt with a Central, PICC or Fol: No Objective vital signs Vital Sign Date Time Temp Pulse Resp B/P (MAP) Pulse Ox O2 Delivery O2 Flow Rate FiO2 03/31/24 09:00 97.7 87 16 110/65 (80) 90 97.7 03/30/24 20:00 Room Air* 0 21 Total Intake and Output 03/30/24 03/30/24 03/31/24 15:00 23:00 07:00 Intake Total 600 ml 350 ml Output Total 3 ml 300 ml Balance 597 ml 50 ml medications Current Medications Medications Dose Ordered Sig/Migdalia Route Start Time Stop Time Status Last Admin Dose Admin Acetaminophen/ Hydrocodone Bitart 1 tab Q4HP PRN PO 03/29/24 17:30 Ondansetron HCl 4 mg Q4HP PRN IV 03/29/24 17:30 Acetaminophen 650 mg Q6HP PRN PO 03/29/24 17:30 Morphine Sulfate 2 mg Q4HPRN PRN IV 03/29/24 17:30 Docusate Sodium 100 mg BID PO 03/30/24 22:00 03/30/24 21:11 100 MG Insulin Human Regular ACHS SC 03/30/24 17:00 03/30/24 19:04 2 UNITS Divalproex Sodium 500 mg QPM PO 03/31/24 18:00 UNV Olanzapine 10 mg QAM PO 04/01/24 07:00 UNV Doxycycline Hyclate 250 ml @ 125 mls/hr Q12H IV 03/31/24 10:15 UNV Olanzapine 20 mg QPM PO 03/31/24 18:00 UNV laboratory and microbiology Laboratory Tests 03/31/24 06:55 Test 03/31/24 06:55 Range/Units Serum Glucose 104 74-106 mg/dL Problem List/Assessment/Plan Problem List/Assessment/Plan 03/31/24 afebrile, normotensive, cellulitis subsided, once packing has been removed and patient shown how to irrigate wound he can be discharged.needs po antibiotics for another 5 days Plan discussed with: Patient, Other ALAN VALDES MD Mar 31, 2024 10:57
[2024-03-31 13:00] VITALS: BP 104/64; PULSE 17; PULSE 89; RESP 17; RESP 89; TEMP 97.8; O2SAT 91
[2024-03-31] MEDS: DOXYCYCLINE 100MG/250ML 250 ML IV SCH (13:33)
[2024-03-31 17:00] VITALS: BP 112/63; PULSE 97; RESP 19; TEMP 98.1; O2SAT 92
[2024-03-31] MEDS: OLANZapine 5 MG TAB PO SCH (17:09)
[2024-03-31 21:00] VITALS: BP 124/68; PULSE 91; RESP 20; TEMP 98.5; O2SAT 97
[2024-04-01 01:00] VITALS: BP 122/71; PULSE 90; RESP 20; TEMP 98.1; O2SAT 96
[2024-04-01 05:00] VITALS: BP 107/77; PULSE 83; RESP 20; TEMP 97.8; O2SAT 96
[2024-04-01] MEDS: OLANZapine 5 MG TAB PO SCH (06:04)
[2024-04-01 08:07] LABS: Basophils # (auto) 0.1 10 ^3/uL (0-0.2); Basophils % (auto) 0.8 % (0.0-2.0); Eosinophils # (auto) 0.5 10 ^3/uL (0-0.8); Eosinophils % (auto) 4.4 % (0.0-7.0); Hematocrit 44.8 % (41.0-53.0); Hemoglobin 15.1 g/dL (13.5-17.5); Lymphocytes # (auto) 3.8 10 ^3/uL (0.4-5.4); Lymphocytes % (auto) 35.4 % (10.0-50.0); Mean Corpuscular Hemoglobin 30.5 pg (28.0-32.0); Mean Corpuscular Hgb Conc. 33.6 g/dL (32.0-36.0); Mean Corpuscular Volume 90.7 fL (80.0-100.0); Monocytes # (auto) 0.9 10 ^3/uL (0-1.3); Monocytes % (auto) 8.5 % (0.0-12.0); Neutrophils # (auto) 5.4 10 ^3/uL (1.6-8.6); Neutrophils % (auto) 50.9 % (37.0-80.0); Platelet Count (auto) 279 10^3/uL (140-450); Red Blood Cells 4.93 10^6/uL (4.5-5.90); Red Cell Distribution Width 13.7 % (11.8-14.3); White Blood Cell 10.6 10^3/uL (4.4-10.8)
[2024-04-01 08:19] LABS: Chloride 107 mmol/L (98-107); Potassium 4.2 mmol/L (3.5-5.1); Sodium 139 mmol/L (136-145)
[2024-04-01 08:20] LABS: Anion Gap 10 (5-15); Calcium 9.8 mg/dL (8.7-10.4); Carbon Dioxide 22 mmol/L (20-31)
[2024-04-01 08:25] LABS: BUN/Creatinine Ratio 7.8 (10.0-20.0); Glucose 98 mg/dL (74-106)
[2024-04-01 08:29] LABS: Blood Urea Nitrogen 7 mg/dL (9-23)
[2024-04-01 09:00] VITALS: BP 107/66; PULSE 96; RESP 20; TEMP 97.9; O2SAT 97
[2024-04-01] MEDS ORDERED: DOXY-286 PO (11:56)
--- NOTE | 2024-04-01 12:25 | DVHDS2 ---
Discharge Summary Date of Admission Mar 29, 2024 at 17:17 Date of Discharge: Apr 01, 2024 Labs/Diagnostic Data: Laboratory Results Test 04/01/24 07:29 03/31/24 06:55 03/30/24 02:25 03/29/24 14:32 White Blood Count 10.6 10^3/uL (4.4-10.8) Red Blood Count 4.93 10^6/uL (4.5-5.90) Hemoglobin 15.1 g/dL (13.5-17.5) Hematocrit 44.8 % (41.0-53.0) Mean Corpuscular Volume 90.7 fL (80.0-100.0) Mean Corpuscular Hemoglobin 30.5 pg (28.0-32.0) Mean Corpuscular Hemoglobin Concent 33.6 g/dL (32.0-36.0) Red Cell Distribution Width 13.7 % (11.8-14.3) Platelet Count 279 10^3/uL (140-450) Mean Platelet Volume 8.0 fL (6.9-10.8) Neutrophils (%) (Auto) 50.9 % (37.0-80.0) Lymphocytes (%) (Auto) 35.4 % (10.0-50.0) Monocytes (%) (Auto) 8.5 % (0.0-12.0) Eosinophils (%) (Auto) 4.4 % (0.0-7.0) Basophils (%) (Auto) 0.8 % (0.0-2.0) Neutrophils # (Auto) 5.4 10 ^3/uL (1.6-8.6) Lymphocytes # (Auto) 3.8 10 ^3/uL (0.4-5.4) Monocytes # (Auto) 0.9 10 ^3/uL (0-1.3) Eosinophils # (Auto) 0.5 10 ^3/uL (0-0.8) Basophils # (Auto) 0.1 10 ^3/uL (0-0.2) Nucleated Red Blood Cells 0.0 % Sodium Level 139 mmol/L (136-145) Potassium Level 4.2 mmol/L (3.5-5.1) Chloride Level 107 mmol/L (98-107) Carbon Dioxide Level 22 mmol/L (20-31) Anion Gap 10 (5-15) Blood Urea Nitrogen 7 mg/dL (9-23) Creatinine 0.90 mg/dL (0.700-1.30) Glomerular Filtration Rate Calc 108 mL/min (>90) BUN/Creatinine Ratio 7.8 (10.0-20.0) Serum Glucose 98 mg/dL (74-106) Calcium Level 9.8 mg/dL (8.7-10.4) Total Bilirubin 0.8 mg/dL (0.2-1.0) Aspartate Amino Transferase (AST) 14 U/L (13-40) Alanine Aminotransferase (ALT) 17 U/L (7-40) Alkaline Phosphatase 61 U/L (46-116) Total Protein 6.5 g/dL (5.7-8.2) Albumin 4.0 g/dL (3.2-4.8) Urine Color Yellow (Yellow) Urine Clarity Clear (Clear) Urine pH 6.0 (5.0-9.0) Urine Specific [place] 1.031 (1.001-1.035) Urine Protein Trace (Negative) Urine Ketones 1+ (Negative) Urine Blood Negative /uL (Negative) Urine Nitrite Negative (Negative) Urine Bilirubin Negative (Negative) Urine Urobilinogen Normal mg/dL (Negative) Urine Leukocyte Esterase Negative /uL (Negative) Urine RBC 8 /hpf (0 - 3) Urine WBC 1 /hpf (0 - 3) Urine Squamous Epithelial Cells None seen /hpf (<5) Urine Bacteria None seen /hpf (None Seen) Urine Glucose Normal mg/dL (Normal) Prothrombin Time 10.4 sec (9.3-11.8) Prothrombin Time INR 0.98 (0.9-1.15) Activated Partial Thromboplast Time 31.4 SEC (24.5-34.5) Other Laboratory Tests 04/01/24 07:29 Brief Hx & Hospital Course: SEE DICTATED NOTE Condition at Discharge: Fair Final Diagnosis/Problems List LEFT AXILLARY ABSCESS Discharge Disposition: Home Discharge Instruct/Medications Diet: Cardiac 2g Na,low cholest Activity: No Restrictions, As Tolerated Follow Up/Referral: FU WITH DR VALDES IN 1 WK Medications: RESUME HOME MEDS SCRIPT TO PHARMACY Discharge Statement: "Patient was advised to return to the ER or call 911 if any headaches, dizziness, shortness of breath, chest pain, abdominal pain, bleeding, fevers, or worsening of medical condition. Patient was counseled about treatment plan, medications, possible side effects, patientverbalized understanding. All questions were answered to the best of my ability. This discharge took greater then 30 minutes in planning, reviewing documentation, counseling the patient, and discussing with other team members." ASSESSMENT ASSESSMENT Assessment LEFT AXILLARY ABSCESS Date of Service: Apr 01, 2024 Billing Provider: MARY SOLIS MD Common Visit Codes: 26436-ORV/OBS DISCH DAY >30min MARY SOLIS MD Apr 01, 2024 12:25
--- NOTE | 2024-04-01 12:31 | DVHDS ---
DATE OF DISCHARGE: 04/01/2024 HISTORY OF PRESENT ILLNESS: The patient is a 43-year-old gentleman who was admitted with history of pain and swelling in the left axilla. He has history of schizophrenia and anxiety. HOSPITAL COURSE: The patient underwent surgery by Dr. Jarvis, with removal of left axillary hidradenitis suppurativa and drainage of abscess. The patient's wound cultures have so far been negative. The patient will now be discharged home to resume his home medications as well as to be on doxycycline 100 mg p.o. b.i.d. for 10 days. He will follow up with Surgery in 1 week. FINAL DIAGNOSES: Therefore: * Left axillary hidradenitis suppurativa with abscess, status post surgery. * Sepsis secondary to left axillary abscess. * Morbid obesity. * Schizophrenia/anxiety. Time spent in discharge planning and review of plan with the patient and family was 37 minutes. MD RAMO Presley/[facility] TID: [id number] RECEIPT: [id number]
== END 2024-04-01 12:30 | disposition home health service (06) | DRG 720 ==
LOC: ER 14:05 → EEVIPCON 14:05 → OVERFLOW 17:17 → CENTRAL 19:09
PROVIDERS: ATTEND Internal Medicine
PROC: 0X950ZZ Drainage of Left Axilla, Open Approach (ICD-10-PCS; principal; 2024-03-30 09:19)
DX: A41.9 Sepsis, unspecified organism (principal); E11.9 Type 2 diabetes mellitus without complications; L02.412 Cutaneous abscess of left axilla; E78.2 Mixed hyperlipidemia; E66.01 Morbid (severe) obesity due to excess calories; F41.9 Anxiety disorder, unspecified; L73.2 Hidradenitis suppurativa; E88.810 Metabolic syndrome; F20.9 Schizophrenia, unspecified; Z79.899 Other long term (current) drug therapy; Z88.8 Allergy status to other drugs, medicaments and biological substances; Z71.51 Drug abuse counseling and surveillance of drug abuser; Z68.37 Body mass index [BMI] 37.0-37.9, adult
CPT/HCPCS: 36415; 80048; 80053; 81001; 85025; 85610; 85730; 87040; 87070; 87075; 87076; 87205; G0378; J0690; J1815; J1885; J2250; J2405; J2543; J3490

== ENCOUNTER → 2024-07-07 | Outpatient (CLI) | payer MEDICAID ==
[~2024-07-07] MED LIST changes: +DIVA-91 PO; +DOXY-286 PO; +FINA5TAB4 PO; +OLAN10TA PO
== END | disposition home or self-care (01) ==
LOC: XYW 10:21
PROVIDERS: ATTEND Internal Medicine Pulmonary Disease
DX: R06.00 Dyspnea, unspecified (principal); F17.210 Nicotine dependence, cigarettes, uncomplicated; Z79.899 Other long term (current) drug therapy
CPT/HCPCS: 94060; 94618; 94727; 94729